=== PATIENT | female | born 1965 | race Caucasian/White ===

== ENCOUNTER 2019-04-10 13:29 | Observation (INO) | payer BC ==
[2019-04-10 14:43] LABS: Absolute Lymphocytes (CBC) 2.1 K/uL (0.7-4.9); Basophils % 0.6 % (0-1.3); Hematocrit 37.8 % (36.0-45.0); Lymphocytes % 46.6 % (15.3-44.8); MPV 9.3 fL (7.6-11.3); RBC Red Blood Cell Count 4.41 M/uL (3.86-4.86)
[2019-04-10] MEDS ORDERED: ASPIRIN 81 MG CHEWABLE TABLET ONE (14:44)
[2019-04-10] MEDS ORDERED: NA CHLORIDE 0.9% 1,000 ML ONE ×2 (14:44→23:56)
[2019-04-10 14:45] LABS: Protime INR 0.95
[2019-04-10] MEDS ORDERED: ENOXAPARIN 60 MG/0.6 ML SQ ONE (14:45)
[2019-04-10] MEDS ORDERED: FAMOTIDINE 20 MG/2 ML VIAL IV ONE (14:45)
[2019-04-10 15:01] LABS: ALT/SGPT 35 U/L (12-78); AST/SGOT 25 U/L (15-37); Alkaline Phosphatase 91 U/L (45-117); BUN Blood Urea Nitrogen 15 mg/dL (7-18); Bicarbonate 28 mmol/L (21-32); Bilirubin Direct < 0.1 mg/dL (0-0.2); Bilirubin Total 0.2 mg/dL (0.2-1.0); Glucose Level 85 mg/dL (74-106); NT PRO-BNP 55 pg/mL (<125); Potassium 4.1 mmol/L (3.5-5.1); Protein, Total 7.6 g/dL (6.4-8.2); Sodium Level 141 mmol/L (136-145); Troponin (Emerg Dept Use Only) < 0.02 ng/mL (0.0-0.045)
--- NOTE | 2019-04-10 16:08 | RAD REPORT ---
EXAM DESCRIPTION: RAD - Chest Single View - 04/10/2019 3:48 pm CLINICAL HISTORY: CHEST PAIN Chest pain. COMPARISON: CHEST SINGLE VIEW dated 10/25/2013 FINDINGS: Portable technique limits examination quality. The lungs are grossly clear. The heart is normal in size. No displaced fractures.A right-sided scolio sis edin is present. IMPRESSION: No acute intrathoracic process suspected.
--- NOTE | 2019-04-10 16:13 | ER ---
Nurse's Notes [facility] Name: Ingrid Butcher Age: 54 yrs Sex: Female : 1965 Arrival Date: 04/10/2019 Time: 13:33 Bed 23 Private MD: Diagnosis: Chest pain, unspecified Presentation: 04/10 13:41 Presenting complaint: Patient states: nauseated, chest pain started 2 hours ago dm5 described as sharp shooting intermittent, denies previous similar pain. 13:41 Method Of Arrival: Ambulatory dm5 13:41 Acuity: CYRUS 2 dm5 Triage Assessment: 19:30 General: Appears in no apparent distress. comfortable, Behavior is calm, cooperative, rr5 appropriate for age. 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 - Social history:: Smoking status: Patient/guardian denies using tobacco. - Family history:: not pertinent. - Ebola Screening: : Patient negative for fever greater than or equal to 101.5 degrees Fahrenheit, and additional compatible Ebola Virus Disease symptoms Patient denies exposure to infectious person Patient denies travel to an Ebola-affected area in the 21 days before illness onset. Screenin:18 Abuse screen: Denies threats or abuse. Denies injuries from another. Nutritional sg screening: No deficits noted. Tuberculosis screening: No symptoms or risk factors identified. Never had TB. Fall Risk None identified. Assessment: 14:18 General: Appears in no apparent distress. well groomed, well developed, well nourished, sg Behavior is calm, cooperative, appropriate for age. Pain: Complains of pain in chest Quality of pain is described as aching. 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 Gait is steady, Speech is normal, Facial symmetry appears normal. Cardiovascular: Heart tones S1 S2 present Capillary refill is brisk in bilateral fingers Patient's skin is warm and dry. Chest pain is described as mild, diffuse, quality is heaviness, indigestion. Respiratory: Airway is patent Respiratory effort is even, unlabored, Respiratory pattern is regular, symmetrical, Breath sounds are clear. GI: Abdomen is round non-distended, Reports normal bowel habits, tolerance of fluids, tolerance of food. : No signs and/or symptoms were reported regarding the genitourinary system. EENT: No signs and/or symptoms were reported regarding the EENT system. Derm: Skin is pink, warm \T\ dry. Musculoskeletal: No signs and/or symptoms reported regarding the musculoskeletal system. 15:20 Reassessment: Patient appears in no apparent distress at this time. Patient and/or sg family updated on plan of care and expected duration. Pain level reassessed. Patient is alert, oriented x 3, equal unlabored respirations, skin warm/dry/pink. 16:20 Reassessment: Patient and/or family updated on plan of care and expected duration. Pain sg level reassessed. Patient is alert, oriented x 3, equal unlabored respirations, skin warm/dry/pink. 17:20 Reassessment: Patient appears in no apparent distress at this time. Patient and/or sg family updated on plan of care and expected duration. Pain level reassessed. Patient is alert, oriented x 3, equal unlabored respirations, skin warm/dry/pink. 18:49 Reassessment: Patient appears in no apparent distress at this time. Patient and/or sg family updated on plan of care and expected duration. Pain level reassessed. Patient is alert, oriented x 3, equal unlabored respirations, skin warm/dry/pink. Patient states symptoms have not improved. 19:30 General: Appears in no apparent distress. 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 19:30 Pain: Denies pain. Complains of pain in chest Pain does not radiate. Pain currently is rr5 7 out of 10 on a pain scale. Quality of pain is described as aching, Pain began gradually, Is intermittent. Pain: Denies pain. Neuro: Level of Consciousness is awake, alert, obeys commands, Oriented to person, place, time, situation. Cardiovascular: Reports episode of chest pain Capillary refill < 3 seconds Patient's skin is warm and dry. Respiratory: Airway is patent Respiratory effort is even, unlabored, Respiratory pattern is regular, symmetrical. GI: Abdomen is round non-distended. : No signs and/or symptoms were reported regarding the genitourinary system. EENT: No signs and/or symptoms were reported regarding the EENT system. Derm: Skin is intact, Skin is pink, warm \T\ dry. Musculoskeletal: No signs and/or symptoms reported regarding the musculoskeletal system. 20:30 Reassessment: Patient appears in no apparent distress at this time. Patient and/or rr5 family updated on plan of care and expected duration. Pain level reassessed. Patient is alert, oriented x 3, equal unlabored respirations, skin warm/dry/pink. for admission awaiting for room assignment. Reassessment: Patient appears in no apparent distress at this time. 20:59 Reassessment: Patient appears in no apparent distress at this time. complaints of chest rr5 pain 7/10. medication given see [facility]. 22:00 Reassessment: Patient appears in no apparent distress at this time. Patient is alert, rr5 oriented x 3, equal unlabored respirations, skin warm/dry/pink. Patient states feeling better. Patient states symptoms have improved. Vital Signs: 13:43 BP 136 / 83; Pulse 64; Resp 18; Temp 97.5(TE); Pulse Ox 98% on R/A; Weight 51.26 kg; dm5 Height 5 ft. (152.40 cm); Pain 7/10; 18:53 BP 124 / 78; Pulse 62; Resp 16; Temp 98.6(O); Pulse Ox 100% ; lt1 19:32 BP 127 / 80; Pulse 64; Resp 17; Temp 97.5; Pulse Ox 99% on R/A; rr5 20:00 BP 121 / 75; Pulse 75; Resp 17; Pulse Ox 98% ; rr5 21:00 BP 123 / 79; Pulse 74; Resp 19; Temp 98; Pulse Ox 98% ; Pain 7/10; rr5 22:00 BP 115 / 65; Pulse 62; Resp 17; Pulse Ox 98% ; rr5 13:43 Body Mass Index 22.07 (51.26 kg, 152.40 cm) dm5 ED Course: 13:33 Patient arrived in ED. as 13:42 Triage completed. dm5 13:43 Arm band placed on right wrist. dm5 13:51 John Puri MD is Attending Physician. sarah 13:56 EKG done, by compressor service technician. reviewed by John Puri MD. 3 14:18 Dev Ibanez, RN is Primary Nurse. sg 14:18 Initial lab(s) drawn, by ms, sent to lab. Inserted saline lock: 20 gauge in right sg antecubital area, using aseptic technique. Blood collected. 15:14 Urine Dipstick--Ancillary (enter results) Sent. lt1 16:08 Sarath Jean Baptiste MD is Hospitalizing Provider. sarah 16:16 XRAY Chest (1 view) In Process Unspecified. EDMS 19:30 Patient has correct armband on for positive identification. Placed in gown. Bed in low rr5 position. Call light in reach. Side rails up X2. playground monitor on. Pulse ox on. NIBP on. 19:32 Miguelito Coronel, RN is Primary Nurse. rr5 21:28 No provider procedures requiring assistance completed. Patient admitted, IV remains in rr5 place. intact, No redness/swelling at site. Patient maintains SpO2 saturation greater than 95% on room air. 04/11 07:01 Primary Nurse role handed off by Miguelito Coronel, GRACE bp 07:01 Duncan Guo, GRACE is Primary Nurse. bp 07:35 Head of bed lowered. bd Administered Medications: 04/10 15:21 Drug: Pepcid 20 mg Route: IVP; Site: right antecubital; sg 15:22 Drug: NS 0.9% 1000 ml Route: IV; Rate: 125 ml/hr; Site: right antecubital; sg 15:22 Drug: Aspirin Chewable Tablet 324 mg Route: PO; sg 17:00 Drug: Lovenox 1 mg/kg Route: Sub-Q; Site: right lower abdomen; sg 19:07 Drug: morphine 2 mg Route: IVP; Site: right antecubital; sg 20:07 Follow up: Response: No adverse reaction; RASS: Alert and Calm (0) rr5 19:08 Drug: Zofran 4 mg Route: IVP; Site: right antecubital; sg 20:10 Follow up: Response: No adverse reaction rr5 Outcome: 16:09 Decision to Hospitalize by Provider. sarah 21:28 Admitted to ER Hold. Please see [facility] for further documentation. rr5 21:28 Condition: stable 21:28 Instructed on the need for admit. 04/11 09:39 Patient left the ED. iw Signatures: Dispatcher [employer] Kelsie Ramos Deana, RN RN dm5 Dev Ibanez, RN John Lynch MD MD cha Martinez, Amelia as Williams, Irene, RN RN iw Peltier, Brian, RN RN bp Montes, Shakira 3 Miguelito Coronel RN RN rr5 Azeb Caldera 1
--- NOTE | 2019-04-10 16:13 | EDPHYS ---
Physician Documentation [facility] Name: Ingrid Butcher Age: 54 yrs Sex: Female : 1965 Arrival Date: 04/10/2019 Time: 13:33 Bed 23 Private MD: ED Physician John Puri HPI: 04/10 14:38 This 54 yrs old Female presents to ER via Ambulatory with complaints of Chest sarah Pain. 14:38 The patient or guardian reports chest pain that is located primarily in the substernal sarah area. Onset: just prior to arrival, 3 hour(s) ago. The pain radiates to. Associated signs and symptoms: The patient has no apparent associated signs or symptoms. The chest pain is described as aching. Modifying factors: The symptoms are alleviated by nothing. the symptoms are aggravated by nothing. Severity of pain: At its worst the pain was mild moderate in the emergency department the pain is unchanged. 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 - Social history:: Smoking status: Patient/guardian denies using tobacco. - Family history:: not pertinent. - Ebola Screening: : Patient negative for fever greater than or equal to 101.5 degrees Fahrenheit, and additional compatible Ebola Virus Disease symptoms Patient denies exposure to infectious person Patient denies travel to an Ebola-affected area in the 21 days before illness onset. ROS: 14:38 Constitutional: Negative for fever, chills, and weight loss, Eyes: Negative for injury, sarah pain, redness, and discharge, ENT: Negative for injury, pain, and discharge, Neck: Negative for injury, pain, and swelling, Respiratory: Negative for shortness of breath, cough, wheezing, and pleuritic chest pain, Abdomen/GI: Negative for abdominal pain, nausea, vomiting, diarrhea, and constipation, Back: Negative for injury and pain, : Negative for injury, bleeding, discharge, and swelling, MS/Extremity: Negative for injury and deformity, Skin: Negative for injury, rash, and discoloration, Neuro: Negative for headache, weakness, numbness, tingling, and seizure, Psych: Negative for depression, anxiety, suicide ideation, homicidal ideation, and hallucinations, Allergy/Immunology: Negative for hives, rash, and allergies, Endocrine: Negative for neck swelling, polydipsia, polyuria, polyphagia, and marked weight changes, Hematologic/Lymphatic: Negative for swollen nodes, abnormal bleeding, and unusual bruising. 14:38 Cardiovascular: Positive for chest pain. Exam: 14:38 Constitutional: This is a well developed, well nourished patient who is awake, alert, sarah and in no acute distress. Head/Face: Normocephalic, atraumatic. Eyes: Pupils equal round and reactive to light, extra-ocular motions intact. Lids and lashes normal. Conjunctiva and sclera are non-icteric and not injected. Cornea within normal limits. Periorbital areas with no swelling, redness, or edema. ENT: Nares patent. No nasal discharge, no septal abnormalities noted. Tympanic membranes are normal and external auditory canals are clear. Oropharynx with no redness, swelling, or masses, exudates, or evidence of obstruction, uvula midline. Mucous membranes moist. Neck: Trachea midline, no thyromegaly or masses palpated, and no cervical lymphadenopathy. Supple, full range of motion without nuchal rigidity, or vertebral point tenderness. No Meningismus. Chest/axilla: Normal chest wall appearance and motion. Nontender with no deformity. No lesions are appreciated. Cardiovascular: Regular rate and rhythm with a normal S1 and S2. No gallops, murmurs, or rubs. Normal PMI, no JVD. No pulse deficits. Respiratory: Lungs have equal breath sounds bilaterally, clear to auscultation and percussion. No rales, rhonchi or wheezes noted. No increased work of breathing, no retractions or nasal flaring. Abdomen/GI: Soft, non-tender, with normal bowel sounds. No distension or tympany. No guarding or rebound. No evidence of tenderness throughout. Back: No spinal tenderness. No costovertebral tenderness. Full range of motion. Female : Normal external genitalia. Skin: Warm, dry with normal turgor. Normal color with no rashes, no lesions, and no evidence of cellulitis. MS/ Extremity: Pulses equal, no cyanosis. Neurovascular intact. Full, normal range of motion. Neuro: Awake and alert, GCS 15, oriented to person, place, time, and situation. Cranial nerves II-XII grossly intact. Motor strength 5/5 in all extremities. Sensory grossly intact. Cerebellar exam normal. Normal gait. Psych: Awake, alert, with orientation to person, place and time. Behavior, mood, and affect are within normal limits. Vital Signs: 13:43 BP 136 / 83; Pulse 64; Resp 18; Temp 97.5(TE); Pulse Ox 98% on R/A; Weight 51.26 kg; dm5 Height 5 ft. (152.40 cm); Pain 7/10; 18:53 BP 124 / 78; Pulse 62; Resp 16; Temp 98.6(O); Pulse Ox 100% ; lt1 19:32 BP 127 / 80; Pulse 64; Resp 17; Temp 97.5; Pulse Ox 99% on R/A; rr5 20:00 BP 121 / 75; Pulse 75; Resp 17; Pulse Ox 98% ; rr5 21:00 BP 123 / 79; Pulse 74; Resp 19; Temp 98; Pulse Ox 98% ; Pain 7/10; rr5 22:00 BP 115 / 65; Pulse 62; Resp 17; Pulse Ox 98% ; rr5 13:43 Body Mass Index 22.07 (51.26 kg, 152.40 cm) dm5 MDM: 13:51 Patient medically screened. [facility] 14:38 Data reviewed: vital signs, nurses notes, lab test result(s), EKG, radiologic studies, sarah plain films. 04/10 14:23 Order name: Basic Metabolic Panel 04/10 14:23 Order name: CBC with Diff sg 04/10 14:23 Order name: LFT's sg 04/10 14:23 Order name: Magnesium sg 04/10 14:23 Order name: NT PRO-BNP sg 04/10 14:23 Order name: PT-INR; Complete Time: 16:06 04/10 14:23 Order name: Troponin (emerg Dept Use Only) 04/10 14:37 Order name: Lipase; Complete Time: 16:06 [facility] 04/10 14:50 Order name: Urine Dipstick--Ancillary (enter results) ga 04/10 14:50 Order name: CBC with Automated Diff EDMS 04/10 15:02 Order name: Basic Metabolic Panel EDMS 04/10 15:02 Order name: Liver (Hepatic) Function EDAR 04/10 15:02 Order name: Troponin (Emerg Dept Use Only) EDMS 04/10 15:02 Order name: NT PRO-BNP EDMS 04/10 15:02 Order name: Magnesium EDMS 04/10 15:28 Order name: Manual Differential EDMS 04/10 22:06 Order name: Creatine Phosphokinase EDAR 04/10 22:06 Order name: CKMB Creatine Kinase MB EDMS 04/10 22:06 Order name: Troponin I EDMS 04/10 22:59 Order name: Urine Drug Screen EDMS 04/10 23:26 Order name: Urine Microscopic Only EDMS 04/11 06:22 Order name: CBC with Automated Diff EDMS 04/11 06:30 Order name: Creatine Phosphokinase EDAR 04/11 06:30 Order name: CKMB Creatine Kinase MB EDAR 04/11 06:30 Order name: Troponin I EDAR 04/11 06:35 Order name: Basic Metabolic Panel EDAR 04/11 06:35 Order name: Lipid Profile EDAR 04/11 06:35 Order name: T4 Free EDAR 04/11 06:35 Order name: Magnesium EDAR 04/11 06:35 Order name: Thyroid Stimulating Hormone [facility] 04/10 14:23 Order name: XRAY Chest (1 view) 04/10 14:23 Order name: Cardiac monitoring; Complete Time: 14:24 04/10 14:23 Order name: IV Saline Lock; Complete Time: 14:24 04/10 14:23 Order name: Labs collected and sent; Complete Time: 14:24 04/10 14:23 Order name: O2 Per Protocol; Complete Time: 14:24 04/10 14:23 Order name: O2 Sat Monitoring; Complete Time: 14:24 04/10 14:25 Order name: Urine Dipstick-Ancillary (obtain specimen); Complete Time: 15:42 04/10 14:37 Order name: Echo w/ Doppler [facility] 04/10 18:23 Order name: EKG Electrocardiogram EDMS Administered Medications: 15:21 Drug: Pepcid 20 mg Route: IVP; Site: right antecubital; sg 15:22 Drug: NS 0.9% 1000 ml Route: IV; Rate: 125 ml/hr; Site: right antecubital; sg 15:22 Drug: Aspirin Chewable Tablet 324 mg Route: PO; sg 17:00 Drug: Lovenox 1 mg/kg Route: Sub-Q; Site: right lower abdomen; sg 19:07 Drug: morphine 2 mg Route: IVP; Site: right antecubital; sg 20:07 Follow up: Response: No adverse reaction; RASS: Alert and Calm (0) rr5 19:08 Drug: Zofran 4 mg Route: IVP; Site: right antecubital; sg 20:10 Follow up: Response: No adverse reaction rr5 Disposition: 04/10/19 16:09 Hospitalization ordered by Sarath Jean Baptiste for Observation. Preliminary diagnosis is Chest pain, unspecified. - Bed requested for Telemetry/MedSurg (observation). - Status is Observation. iw - Condition is Stable. - Problem is new. - Symptoms have improved. UTI on Admission? No Signatures: Dispatcher [employer] EDJacklyn Fuentes RN RN dm5 Carol Luu RN RN mw Gay, Steven, RN RN sg Anderson, Corey, MD MD cha Williams, Irene, RN RN Miguelito Coronel, RN RN rr5 Corrections: (The following items were deleted from the chart) 19:40 16:09 Hospitalization Ordered by Sarath Jean Baptiste MD for Observation. Preliminary diagnosis mw is Chest pain, unspecified. Bed requested for Telemetry/MedSurg (observation). Status is Observation. Condition is Stable. Problem is new. Symptoms have improved. UTI on Admission? No. sarah 04/11 05:33 04/10 19:40 04/10/2019 16:09 Hospitalization Ordered by Sarath Jean Baptiste MD for mw Observation. Preliminary diagnosis is Chest pain, unspecified. Bed requested for [facility] ER HOLD. Status is Observation. Condition is Stable. Problem is new. Symptoms have improved. UTI on Admission? No. zachary 04/11 09:39 05:33 04/10/2019 16:09 Hospitalization Ordered by Sarath Jean Baptiste MD for Observation. iw Preliminary diagnosis is Chest pain, unspecified. Bed requested for Telemetry/MedSurg (observation). Status is Observation. Condition is Stable. Problem is new. Symptoms have improved. UTI on Admission? No. zachary
[2019-04-10 16:21] LABS: Urine Blood TRACE (NEG); Urine Glucose NEGATIVE (NEG); Urine Protein NEGATIVE (NEG); Urine pH 5.5 (5.0-7.0)
[2019-04-10 16:25] LABS: Blood Morphology Comment NOT SEEN (NOT SEEN); Platelet Estimate ADEQ
[2019-04-10] MEDS ORDERED: ONDANSETRON 4 MG/2 ML VIAL ONE (18:55)
[2019-04-10] MEDS ORDERED: MORPHINE 2 MG/ML SYR ONE (18:55)
--- NOTE | 2019-04-10 19:39 | P.HP ---
Certification for Inpatient Patient admitted to: Observation With expected LOS: <2 Midnights Patient will require the following post-hospital care: None Practitioner: I am a practitioner with admitting privileges, knowledge of patient current condition, hospital course, and medical plan of care. Services: Services provided to patient in accordance with Admission requirements found in Title 42 Section 412.3 of the Code of Federal Regulations Patient History Date of Service: 04/10/19 Primary Care Provider: Dr. Ruiz([place]); Neurology-Dr. Potts Reason for admission: Chest pain History of Present Illness: 54-year-old female presented to the emergency room with chest pain. Patient reports chest pain that started around 11:00 a.m. this morning. She has not had chest pain before. The pain was to the center of the chest. It got worse over time. She described the pain as a cramping like sensation. It radiated to the neck region with muscle tightness. It was associated with some shortness of breath and nausea but no vomiting. There is a family history of heart disease. Reports history of migraines. Patient came to the ER for further evaluation. In the ER patient evaluated. Troponin unremarkable. Blood pressure stable in the emergency room. On lab white count 4.4, hemoglobin 12.7. Sodium 141, potassium 4.1, BUN of 15, creatinine 0.9 with a GFR 65. Glucose 85. Urinalysis negative. Chest x-ray unremarkable. EKG showed no significant EKG changes. Patient was admitted for further evaluation. When I saw the patient the ER, chest pain had resolved. Family at bedside. She does drink some alcohol. No tobacco history. No prior heart disease. Allergies No Known Drug Allergies Allergy (Unverified 08/14/14 04:42) Unknown Home medications list reviewed: Yes - Past Medical/Surgical History Diabetic: No -: Migraine headaches -: Scoliosis -: Mccabe edin Psychosocial/ Personal History: Patient lives at home. - Family History Father -: Heart disease - Social History Smoking Status: Never smoker Alcohol use: Yes CD- Drugs: No Caffeine use: Yes Place of Residence: Home Review of Systems General: As per HPI Eyes: Unremarkable ENT: Unremarkable Respiratory: Shortness of Breath, As per HPI Cardiovascular: Chest Pain, As per HPI Gastrointestinal: Nausea, As per HPI Genitourinary: Unremarkable Musculoskeletal: Unremarkable Integumentary: Unremarkable Neurological: Unremarkable Lymphatics: Unremarkable Physical Examination - Physical Exam General: Alert, In no apparent distress, Oriented x3, Cooperative HEENT: Atraumatic, Normocephalic, PERRLA, Mucous membr. moist/pink Neck: Supple, No Thyromegaly Respiratory: Clear to auscultation bilaterally, Normal air movement Cardiovascular: Normal pulses, Regular rate/rhythm Gastrointestinal: Normal bowel sounds, Soft and benign, Non-distended, No tenderness, No masses, No rebound, No guarding Musculoskeletal: No contractures, No erythema, No tenderness, No warmth Integumentary: No tenderness/swelling, No erythema, No warmth, No cyanosis Neurological: Normal speech, Normal strength at 5/5 x4 extr, Normal tone, Normal affect - Studies Laboratory Data (last 24 hrs) 04/10/19 14:10: Lipase 163 04/10/19 14:10: PT 11.2, INR 0.95 04/10/19 14:10: WBC 4.4, Hgb 12.7, Hct 37.8, Plt Count 249 04/10/19 14:10: Sodium 141, Potassium 4.1, BUN 15, Creatinine 0.90, Glucose 85, Magnesium 2.0, Total Bilirubin 0.2, AST 25, ALT 35, Alkaline Phosphatase 91 Assessment and Plan - Plan Impression: Chest pain likely noncardiac Migraine headaches Plan: Chest pain likely noncardiac: Patient will be admitted for further evaluation and treatment. Will monitor cardiac enzymes and telemetry. Will provide aspirin. Will provide DVT prophylaxis-Lovenox. Will check urine drug screen. Echocardiogram to be obtained to further evaluate. Will consult cardiology to further assess. Will keep the patient NPO as the patient may require cardiac evaluation. Will need to consider outpatient workup if lab unremarkable. Await recommendations from cardiology. I will turn the service over to the hospitalist team tomorrow. They will continue her care. Anticipate discharge likely tomorrow if cleared by cardiology and with negative workup. Migraine headaches: Overall stable. Will continue with her medication of propanolol. Will provide Imitrex as needed. Will provide medication for pain. Discharge Plan: Home Plan to discharge in: 24 Hours - Advance Directives Does patient have a Living Will: No Does patient have a Durable POA for Healthcare: No - Code Status/Comfort Care Code Status Assessed: Yes (Patient is full code) Time Spent Managing Pts Care (In Minutes): 55
[2019-04-10] MEDS: NA CHLORIDE 0.9% 1,000 ML IV SCH (20:50)
[2019-04-10] MEDS ORDERED: HYDROCODONE/APAP 7.5/325 MG TAB PO PRN (20:50)
[2019-04-10] MEDS ORDERED: TRAMADOL HCL 50 MG TAB PO PRN (20:50)
[2019-04-10] MEDS ORDERED: SUMATRIPTAN SUCCI 50 MG TAB PO PRN (20:50)
[2019-04-10] MEDS ORDERED: ACETAMINOPHEN 500 MG TAB PO PRN (20:50)
[2019-04-10] MEDS ORDERED: ONDANSETRON 4 MG/2 ML VIAL IV PRN (20:50)
[2019-04-10] MEDS: PROPRANOLOL HCL 10 MG TAB PO SCH (21:00)
[2019-04-10 22:05] LABS: CKMB Creatine Kinase MB 1.2 ng/mL (0.3-3.6); Creatine Phosphokinase 115 U/L (26-192); Troponin I < 0.02 ng/mL (0.0-0.045)
[2019-04-10 22:58] LABS: Barbiturates NEGATIVE (NEGATIVE); Benzodiazepines NEGATIVE (NEGATIVE); Cocaine NEGATIVE (NEGATIVE); METHAMPHETAM NEGATIVE (NEGATIVE); Methadone NEGATIVE (NEGATIVE); Opiates POSITIVE (NEGATIVE); Phencyclidine NEGATIVE (NEGATIVE); THC Cannibis NEGATIVE (NEGATIVE)
[2019-04-10 23:24] LABS: Urine Bacteria <20 /HPF (<20); Urine Culture Reflex Order NOT NEEDED; Urine RBC NONE SEEN /HPF (NONE SEEN)
--- NOTE | 2019-04-11 00:23 | P.PN ---
Subjective Date of Service: 04/11/19 Primary Care Provider: Dr. Ruiz([place]); Neurology-Dr. Potts Chief Complaint: Chest pain Subjective: Doing well Physical Examination - Vital Signs Blood Pressure: 131/75 Pulse: 75 - Physical Exam General: Alert, In no apparent distress, Oriented x3, Cooperative HEENT: Atraumatic Neck: Supple Respiratory: Clear to auscultation bilaterally, Normal air movement Cardiovascular: Normal pulses, Regular rate/rhythm Gastrointestinal: Normal bowel sounds, Soft and benign, Non-distended, No tenderness, No masses, No rebound Neurological: Normal speech, Normal strength at 5/5 x4 extr, Normal tone, Normal affect - Studies Laboratory Data (last 24 hrs) 04/10/19 14:10: Lipase 163 04/10/19 14:10: PT 11.2, INR 0.95 04/10/19 14:10: WBC 4.4, Hgb 12.7, Hct 37.8, Plt Count 249 04/10/19 14:10: Sodium 141, Potassium 4.1, BUN 15, Creatinine 0.90, Glucose 85, Magnesium 2.0, Total Bilirubin 0.2, AST 25, ALT 35, Alkaline Phosphatase 91 Medications List Reviewed: Yes Assessment & Plan Discharge Plan: Home Plan to discharge in: 24 Hours Physician Review Additional Text: Impression: Chest pain likely noncardiac Migraine headaches Plan: Chest pain likely noncardiac: So far cardiac enzymes x2 negative. Urine drug screen unremarkable.. Continue DVT prophylaxis-Lovenox. Echocardiogram ordered to further evaluate. Await recommendation from cardiology. Will keep the patient NPO as the patient may require cardiac evaluation. Will need to consider outpatient workup if lab unremarkable. Await recommendations from cardiology. Daytime hospitalist team will continue her care. Anticipate discharge later today if workup unremarkable. Migraine headaches: Overall stable. Will continue with her medication of propanolol. Will provide Imitrex as needed. Will provide medication for pain. Time Spent Managing Pts Care (In Minutes): 55
[2019-04-11 00:25] VITALS: BMI 22.0
[2019-04-11 06:10] LABS: Absolute Lymphocytes (CBC) 2.4 K/uL (0.7-4.9); Basophils % 0.5 % (0-1.3); Hematocrit 34.1 % (36.0-45.0); Lymphocytes % 48.3 % (15.3-44.8); MPV 9.1 fL (7.6-11.3); RBC Red Blood Cell Count 3.97 M/uL (3.86-4.86)
[2019-04-11 06:29] LABS: CKMB Creatine Kinase MB < 1.0 ng/mL (0.3-3.6); Creatine Phosphokinase 90 U/L (26-192); Troponin I < 0.02 ng/mL (0.0-0.045)
[2019-04-11] MEDS ORDERED: PANTOPRAZOLE 40MG TABLET PO SCH (06:30)
[2019-04-11 06:34] LABS: Magnesium 1.8 mg/dL (1.8-2.4); Potassium 4.2 mmol/L (3.5-5.1); Thyroid Stimulating Hormone 1.16 uIU/mL (0.360-3.740)
--- NOTE | 2019-04-11 08:28 | ECHO ---
HEIGHT: 5 ft 0 in WEIGHT: 113 lb 0 oz DATE OF STUDY: 04/10/[address]: John Puri MD 2-DIMENSIONAL: YES M.MODE: YES DOPPLER: YES COLOR FLOW: YES TDS: NO PORTABLE: NO DEFINITY: NO BUBBLE STUDY: NO DIAGNOSIS: CHEST PAIN CARDIAC HISTORY: CATHERIZATION: NO SURGERY: NO PROSTHETIC VALVE: NO PACEMAKER: NO MEASUREMENTS (cm) DIASTOLIC (NORMALS) SYSTOLIC (NORMALS) IVSd 0.8 (0.6-1.2) LA Diam 2.7 (1.9-4.0) LVEF 79% LVIDd 3.8 (3.5-5.7) LVIDs 2.0 (2.0-3.5) %FS 47% LVPWd 0.6 (0.6-1.2) Ao Diam 2.3 (2.0-3.7) 2 DIMENSIONAL ASSESSMENT: RIGHT ATRIUM: NORMAL LEFT ATRIUM: NORMAL RIGHT VENTRICLE: NORMAL LEFT VENTRICLE: NORMAL TRICUSPID VALVE: NORMAL MITRAL VALVE: NORMAL PULMONIC VALVE: NORMAL AORTIC VALVE: NORMAL PERICARDIAL EFFUSION: NONE AORTIC ROOT: NORMAL LEFT VENTRICULAR WALL MOTION: NORMAL. DOPPLER/COLOR FLOW: MILD TRICUSPID REGURGITATION. COMMENTS: NORMAL LEFT VENTRICULAR SIZE AND FUNCTION. MILD TRICUSPID REGURGITATION- NORMAL RIGHT VENTRICULAR SYSTOLIC PRESSURE. NO EFFUSION. NO WALL MOTION ABNORMALITY. TECHNOLOGIST: DEVAN REYES
[2019-04-11] MEDS ORDERED: THIAMINE HCL 100 MG TABLET PO SCH (09:00)
[2019-04-11] MEDS ORDERED: ASPIRIN 81 MG CHEWABLE TABLET PO SCH (09:00)
[2019-04-11] MEDS ORDERED: FOLIC ACID 1 MG TABLET PO SCH (09:00)
[2019-04-11] MEDS ORDERED: ENOXAPARIN 40 MG/0.4 ML SQ SCH (09:00)
[2019-04-11] MEDS: PROPRANOLOL HCL 10 MG TAB PO SCH (09:58)
[2019-04-11] MEDS: NA CHLORIDE 0.9% 1,000 ML IV SCH (09:59)
--- NOTE | 2019-04-11 11:36 | EKG ---
Test Date: 2019-04-10 Test Time: 13:50:52 Puff Ironer: ARACELIS MEASUREMENT RESULTS: Intervals: Rate: 66 ID: [id number] QRSD: 80 QT: 382 QTc: 400 Ona: P: 49 ID: [id number] QRS: 81 T: 46 INTERPRETIVE STATEMENTS: Normal sinus rhythm Normal ECG Compared to ECG 10/25/2013 14:56:19 No significant changes Electronically Signed On 04-11-19 11:33:47 CDT by Roberth Silva
[2019-04-11] MEDS ORDERED: TRAZODONE 50 MG TABLET PO PRN (15:12)
[2019-04-11 16:37] VITALS: BP 108/59; TEMP 97.6
[2019-04-11 17:21] VITALS: O2SAT 97
--- NOTE | 2019-04-12 02:03 | CON ---
Date of Consultation: 04/11/[address] Breaux on 04/10/2019, for chest pain, I saw the patient on 04/11/2019. History Of Present Illness: Ms. Butcher is a 54-year-old woman, has no significant past medical hi story. She takes propranolol for hypertension. She came in with sharp stabbing chest pain mid-epiga stric radiating to the back. She has had esophageal stricture dilatation in the past by Dr. Shaw. Her symptoms are not related to exertion. She does not have any diaphoresis or shortness of breath, but does get some nauseas with it. She denied any palpitation or syncope. By the time I saw her, s he has already had a normal EKG, normal chest x-ray, normal troponin, normal BNP, normal CPK, normal MB, and normal echocardiogram. She was still having her pain intermittently. Past Medical History: Negative. Allergies: NEGATIVE. Review of Systems: Negative. Social History: Unremarkable. Family History: Unremarkable. Medications: At home include propranolol. Physical Examination: Vital Signs: Stable. She was afebrile. HEENT: Negative. Neck: Supple with no bruit. Chest: Clear to auscultation and percussion. Cardiac: Revealed a regular rhythm and rate. No murmurs, gallops, or rubs. Abdomen: Benign. Extremities: Revealed no clubbing, cyanosis, or edema. Diagnostic Data: All normal. Impression And Plan: Atypical chest pain, most likely gastrointestinal in nature. She has had esoph ageal stricture dilatation in the past. Her symptoms are nonexertional. Echocardiogram, CPKs, MBs, and troponin are negative. I am comfortable with her going home on proton pump inhibitor, maybe doub le the dose temporarily, have her see Dr. Shaw and I would like her to have an outpatient stress te st done anyway. NB/MODL Voice ID: [id number] Report ID: [id number]
--- NOTE | 2019-04-13 06:58 | DS ---
Date of Discharge: 04/11/2019 Consultants: 1.Dr. Silva with Cardiology. 2.Dr. Shaw with GI. Procedures: None. Discharge Diagnoses: 1.Atypical chest pain. 2.Migraine headaches. 3.History of esophageal stricture, status post dilatation in the past. 4.Hypertriglyceridemia. 5.History of scoliosis. Hospital Course: Patient is a 54-year-old female with past medical history of restless legs syndrome , migraines, comes in with chest pain. Patient also has history of esophageal stricture with previou s dilatation by Dr. Shaw over a year ago. Patient does report difficulty swallowing, needs to have sips of water with anything that she swallows. Patient was admitted to rule out ACS. Cardiac enzym es were negative. Echocardiogram was done, which did not show any wall motion abnormalities. Lipid panel showed mildly elevated triglycerides. HDL was low. She was seen by Cardiology, Dr. Silva w renae recommended outpatient stress test. Patient was started on PPI due to her history of esophageal s tricture. She is supposed to be on PPI at home. Dr. Shaw was consulted. However, patient did not wish to stay in the hospital, wanted to follow up as an outpatient. As her symptoms had dissipated, she did not have any further chest pain and she was tolerating her diet well without any choking epi sodes. She was discharged to follow up with GI as an outpatient. Her chest pain is likely atypical, likely related to her esophageal stricture with possible spasms. She will need EGD with repeat dila tation and to continue on PPI faithfully. Patient was then discharged home in stable condition. Activity: As tolerated. Medications: As per medication reconciliation list. Followup: Follow up with primary care physician in 2 to 3 days. Follow up with GI, Dr. Shaw in 1 week. Follow up with boiling house hand, Dr. Silva in 1 week for outpatient stress test. Return to ER f or worsening condition. Diet: Heart healthy. Physical Examination: General: Awake, alert, oriented x3. No acute distress. CV: S1, S2. No murmurs. Respiratory: Moving air well bilaterally. Abdomen: Soft, nontender, nondistended. Positive bowel sounds. Extremities: No clubbing, cyanosis, edema. Neurologic: Nonfocal. SA/MODL Voice ID: [id number] Report ID: [id number]
== END 2019-04-11 18:21 | disposition home or self-care (01) ==
LOC: ER 13:29 → ERHOLD 19:34 → 4TH 04-11 08:47
PROVIDERS: ADMIT Family Medicine; ATTEND Family Medicine
DX: R07.89 Other chest pain (principal); G43.909 Migraine, unspecified, not intractable, without status migrainosus; E78.1 Pure hyperglyceridemia; M41.9 Scoliosis, unspecified; G25.81 Restless legs syndrome
CPT/HCPCS: 93005; 93306; 85025 ×2; 80048 ×2; 36415; 83735 ×2; 82550 ×2; 85610; 80061; 80076; 80307 ×8; 84443; 84484 ×3; 82553 ×2; 84439; 83690; 83880; 71045; 96375; 96372; 96374; 99285; J1650 ×2; J2270; J7030 ×4; J2405; G0378 ×3; 81003; 81015

== ENCOUNTER 2019-05-02 17:54 | Emergency (ER) | payer BC ==
[2019-05-02] MEDS ORDERED: HYDROCODONE/APAP 7.5/325 MG TAB ONE (18:17)
--- NOTE | 2019-05-02 18:41 | RAD REPORT ---
EXAM DESCRIPTION: RAD - Wrist Right 3 View - 05/02/2019 6:28 pm CLINICAL HISTORY: Fall, wrist pain COMPARISON: None. FINDINGS: Transverse fracture of the distal radius is present approximately 1 centimeter from the ar ticular surface. No distraction or angulation deformity. Ulna is intact. No carpal bone fracture or d isplacement. There is no dislocation or periosteal reaction noted. No foreign body or other soft tiss ue abnormality. IMPRESSION: Distal right radius fracture with no distraction or angulation deformity.
--- NOTE | 2019-05-02 18:55 | EDPHYS ---
Physician Documentation [facility] Name: Ingrid Butcher Age: 54 yrs Sex: Female : 1965 Arrival Date: 05/02/2019 Time: 18:04 Bed 28 Private MD: ED Physician John Puri HPI: 05/02 18:52 This 54 yrs old Female presents to ER via Ambulatory with complaints of Wrist kb Injury. 18:52 The patient or guardian reports injury, pain, swelling, tenderness. The complaints kb affect the right wrist diffusely. Context: The problem was sustained at home, resulted from a fall, from hoverboard, on an outstretched hand. Onset: The symptoms/episode began/occurred just prior to arrival. Modifying factors: The symptoms are alleviated by nothing, the symptoms are aggravated by nothing. Associated signs and symptoms: The patient has no apparent associated signs or symptoms. The patient has not experienced similar symptoms in the past. The patient has not recently seen a physician. 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 - Social history:: Smoking status: Patient/guardian denies using tobacco. - Ebola Screening: : No symptoms or risks identified at this time. ROS: 18:51 Constitutional: Negative for fever, chills, and weight loss, Cardiovascular: Negative kb for chest pain, palpitations, and edema, Respiratory: Negative for shortness of breath, cough, wheezing, and pleuritic chest pain, Abdomen/GI: Negative for abdominal pain, nausea, vomiting, diarrhea, and constipation, Skin: Negative for injury, rash, and discoloration, Neuro: Negative for headache, weakness, numbness, tingling, and seizure. 18:51 MS/extremity: Positive for injury or acute deformity, pain, tenderness. Exam: 18:51 Constitutional: This is a well developed, well nourished patient who is awake, alert, kb and in no acute distress. Head/Face: Normocephalic, atraumatic. Chest/axilla: Normal chest wall appearance and motion. Nontender with no deformity. No lesions are appreciated. Cardiovascular: Regular rate and rhythm with a normal S1 and S2. No gallops, murmurs, or rubs. Normal PMI, no JVD. No pulse deficits. Respiratory: Lungs have equal breath sounds bilaterally, clear to auscultation and percussion. No rales, rhonchi or wheezes noted. No increased work of breathing, no retractions or nasal flaring. Abdomen/GI: Soft, non-tender, with normal bowel sounds. No distension or tympany. No guarding or rebound. No evidence of tenderness throughout. Skin: Warm, dry with normal turgor. Normal color with no rashes, no lesions, and no evidence of cellulitis. Neuro: Awake and alert, GCS 15, oriented to person, place, time, and situation. Cranial nerves II-XII grossly intact. Motor strength 5/5 in all extremities. Sensory grossly intact. Cerebellar exam normal. Normal gait. 18:51 Musculoskeletal/extremity: Extremities: grossly normal except: noted in the right wrist: pain, swelling, tenderness, ROM: limited active range of motion due to pain, Circulation is intact in all extremities. Sensation intact. Vital Signs: 18:05 BP 128 / 86; Pulse 89; Resp 16; Temp 98.6; Pulse Ox 100% on R/A; Weight 51.26 kg; la1 Height 5 ft. 0 in. (152.40 cm); 19:27 BP 131 / 85; Pulse 91; Resp 18; Pulse Ox 100% on R/A; ca1 18:05 Body Mass Index 22.07 (51.26 kg, 152.40 cm) la1 MDM: 18:09 Patient medically screened. kb 18:51 Data reviewed: vital signs, nurses notes. Data interpreted: Pulse oximetry: on room air kb is 100 %. Interpretation: normal. Counseling: I had a detailed discussion with the patient and/or guardian regarding: the historical points, exam findings, and any diagnostic results supporting the discharge/admit diagnosis, radiology results, the need for outpatient follow up, a orthopedic surgeon, to return to the emergency department if symptoms worsen or persist or if there are any questions or concerns that arise at home. 05/02 18:06 Order name: Wrist Right 3 View XRAY; Complete Time: 18:47 la1 05/02 18:50 Order name: Sugar Tong Forearm Splint; Complete Time: 19:25 kb 05/02 18:50 Order name: Sling; Complete Time: 19:25 kb Administered Medications: 18:18 Drug: [place] (7.5 mg-325 mg) 1 tabs Route: PO; ca1 18:55 Follow up: Response: No adverse reaction; Pain is decreased ca1 Disposition: 05/03 05:47 Co-signature as Attending Physician, John Puri MD I agree with the assessment and sarah plan of care. Disposition: 05/02/19 18:54 Discharged to Home. Impression: Unspecified fracture of right forearm - radius. - Condition is Stable. - Discharge Instructions: Forearm Fracture, [id number]. - Prescriptions for Tylenol- Codeine #3 300-30 mg Oral Tablet - take 2 tablets by ORAL route every 6 hours As needed; 16 tablet. - Medication Reconciliation Form, Thank You Letter, Antibiotic Education, Prescription Opioid Use form. - Follow up: Private Physician; When: 2 - 3 days; Reason: Recheck today's complaints, Continuance of care, Re-evaluation by your physician. Follow up: Emergency Department; When: As needed; Reason: Worsening of condition. Signatures: Dispatcher [employer] EDEly Bowen, MACHINE TENDER-C MACHINE TENDER-John Hicks MD MD cha Attema, Lee, RN RN la1 Lorrie Smith, RN RN ca1 Corrections: (The following items were deleted from the chart) 05/02 19:40 18:54 05/02/2019 18:54 Discharged to Home. Impression: Unspecified fracture of right ca1 forearm - radius. Condition is Stable. Forms are Medication Reconciliation Form, Thank You Letter, Antibiotic Education, Prescription Opioid Use. Follow up: Private Physician; When: 2 - 3 days; Reason: Recheck today's complaints, Continuance of care, Re-evaluation by your physician. Follow up: Emergency Department; When: As needed; Reason: Worsening of condition. kb
--- NOTE | 2019-05-02 18:55 | ER ---
Nurse's Notes [facility] Name: Ingrid Butcher Age: 54 yrs Sex: Female : 1965 Arrival Date: 05/02/2019 Time: 18:04 Bed 28 Private MD: Diagnosis: Unspecified fracture of right forearm-radius Presentation: 05/02 18:04 Presenting complaint: Patient states: I fell off of a hover board and hurt my right la1 wrist. Transition of care: patient was not received from another setting of care. Onset of symptoms was May 02, 2019. Risk Assessment: Do you want to hurt yourself or someone else? Patient reports no desire to harm self or others. Initial Sepsis Screen: Does the patient meet any 2 criteria? No. Patient's initial sepsis screen is negative. Does the patient have a suspected source of infection? No. Patient's initial sepsis screen is negative. Care prior to arrival: None. 18:04 Method Of Arrival: Ambulatory la1 18:04 Acuity: CYRUS 4 la1 Triage Assessment: 18:45 Injury Description: Bruise sustained to right wrist. 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 - Social history:: Smoking status: Patient/guardian denies using tobacco. - Ebola Screening: : No symptoms or risks identified at this time. Screenin:12 Abuse screen: Denies threats or abuse. Denies injuries from another. Nutritional ca1 screening: No deficits noted. Tuberculosis screening: No symptoms or risk factors identified. Fall Risk Fall in past 12 months (25 points). Assessment: 18:12 General: Appears in no apparent distress. comfortable, Behavior is calm, cooperative, ca1 appropriate for age. Pain: Complains of pain in dorsum of right hand and dorsal aspect of right wrist Pain currently is 8 out of 10 on a pain scale. Derm: Skin is intact, is healthy with good turgor, Skin is pink, warm \T\ dry. Musculoskeletal: Circulation, motion, and sensation intact. Capillary refill < 3 seconds, Range of motion: limited in right wrist. 19:27 Reassessment: Patient appears in no apparent distress at this time. Patient and/or ca1 family updated on plan of care and expected duration. Pain level reassessed. Patient is alert, oriented x 3, equal unlabored respirations, skin warm/dry/pink. Vital Signs: 18:05 BP 128 / 86; Pulse 89; Resp 16; Temp 98.6; Pulse Ox 100% on R/A; Weight 51.26 kg; la1 Height 5 ft. 0 in. (152.40 cm); 19:27 BP 131 / 85; Pulse 91; Resp 18; Pulse Ox 100% on R/A; ca1 18:05 Body Mass Index 22.07 (51.26 kg, 152.40 cm) la1 ED Course: 18:04 Patient arrived in ED. la1 18:05 Triage completed. la1 18:05 Arm band placed on left wrist. la1 18:07 Lorrie Smith, RN is Primary Nurse. ca1 18:09 Ely Vides F[facility]-C [facility]. kb 18:09 John Puri MD is Attending Physician. kb 18:12 Patient has correct armband on for positive identification. Bed in low position. Call ca1 light in reach. Side rails up X 1. Pulse ox on. NIBP on. 18:12 No provider procedures requiring assistance completed. Patient did not have IV access ca1 during this emergency room visit. 18:25 Wrist Right 3 View XRAY In Process Unspecified. EDMS 19:05 Orthoglass splint: Sugar tong splint applied on right arm. by Richard Kim, harvesting supervisor ca1 Sling applied to right arm. Administered Medications: 18:18 Drug: [place] (7.5 mg-325 mg) 1 tabs Route: PO; ca1 18:55 Follow up: Response: No adverse reaction; Pain is decreased ca1 Outcome: 18:54 Discharge ordered by . kb 19:28 Discharged to home ambulatory, with family. ca1 19:28 Condition: stable 19:28 Discharge instructions given to patient, Instructed on discharge instructions, follow up and referral plans. medication usage, Demonstrated understanding of instructions, follow-up care, medications, Prescriptions given X 1. 19:40 Patient left the ED. ca1 Signatures: Dispatcher [employer] EDMS Ely Vides FNP-C FNP-Ckb Attema, Lee, RN RN la Lorrie Smith RN RN ca1
[2019-05-02 20:26] VITALS: TEMP 98.6; O2SAT 100
[2019-05-02 20:27] VITALS: BP 131/85
== END 2019-05-02 19:40 | disposition home or self-care (01) ==
LOC: ER 17:54
DX: S52.501A Unspecified fracture of the lower end of right radius, initial encounter for closed fracture (principal); X58.XXXA Exposure to other specified factors, initial encounter; Y93.9 Activity, unspecified; Y92.9 Unspecified place or not applicable; Y99.9 Unspecified external cause status
CPT/HCPCS: 99284

== ENCOUNTER 2024-03-04 18:40 | Emergency (ER) | payer BC ==
--- OUTSIDE RECORDS SUMMARY | 2024-03-04 18:42 | XMS REPORT | Continuity of Care Document ---
Author Name Unknown Address [address] [place] [address] [facility] thconnect Address [address] [place] [address] Care Team Providers Care Sign Maintenance Name Role Phone [email or web address]_S Attending Clinician Unavaila ble [email or web address]_S Admitting Clinician Unavaila ble Payers Payer Name Policy Type Policy Number Effective Date Expirati on Date Source [place] [id number] 2015 00:00:00 Problems Condition Name Condition Details Condition Category Status Onset Date Resolution Date Last Treatment Date Treating Clinician Comments Source Increased frequency of urination Increased Frequency of Urination Problem Active 4-10 00:00: 00 [facility] Gastroesop hageal reflux disease Gastroesop hageal Reflux Disease Problem Active 2022-07 0-26 00:00: 00 [facility] Dyspareuni a Dyspareuni a Problem Active 2021-07 0-28 00:00: 00 [facility] Gynecologi c examinatio n Gynecologi c Examinatio n Problem Active 2021-07 0-28 00:00: 00 [facility] Deep pain on intercours e Deep Pain on Intercours e Problem Active 2021-07 0-14 00:00: 00 [facility] Atrophic vaginitis Atrophic Vaginitis Problem Active 2021-07 0-14 00:00: 00 [facility] History of urinary tract infection History of Urinary Tract Infection Problem Active 2021-07 0-14 00:00: 00 [facility] Candidiasi s of vulva Candidiasi s of Vulva Problem Active 2021-07 0-14 00:00: 00 [facility] Candidiasi s of vagina Candidiasi s of Vagina Problem Active 2021-07 014 00:00: 00 [facility] Social History Smoking Status Start Date Stop Date Source Never Smoker [facility] Medications Ordered Medication Name Filled Medication Name Start Date Stop Date Current Medication? Ordering Clinician Indication Dosage Frequency Signature (SIG) Comments Components Source nitrofurant oin monohydrate /macrocryst als 100 mg capsule Take 1 capsule every 12 hours by oral route as directed for 7 days. nitrofurant oin monohydrate /macrocryst als 100 mg capsule Take 1 capsule every 12 hours by oral route as directed for 7 days. No 1capsul e(s) Q12H nitrofuran toin monohydrat e/macrocry stals 100 mg capsule Take 1 capsule every 12 hours by oral route as directed for 7 days. [facility] Plan of Care Planned Activity Planned Date Details Comments Source Diagnostic Test Pending 2023-11-03 00:00:00 urinalysis, dipstick [code = urinalysis, dipstick] [facility] Diagnostic Test Pending 2023-11-03 00:00:00 urinalysis complete, reflex culture [code = urinalysis complete, reflex culture] [facility] Encounters Start Date/Time End Date/Time Encounter Type Admission Type Attending Clinicians Care Facility Care Department Encounter ID Source 2023-11-03 00:00:00 2023-11-03 00:00:00 Amanda Adams, SAP MOBILITY ARCHITECT: [address], [place] [address] , Ph. [email or web address] diyala_S [facility] - GC_GCBZW_Oneyda [facility]* [id number] [facility] 2023-11-01 00:00:00 2023-11-01 00:00:00 Outpatient [email or web address]_Ka diyala_S [facility] [id number] [facility] 2023-05-23 00:00:00 2023-05-23 00:00:00 Outpatient [email or web address]_Ka diyala_S [facility] [id number] [facility] 2023-05-20 00:00:00 2023-05-20 00:00:00 Outpatient GC_GCBZW_Ka diyala_S [facility] [id number] [facility] 2023-05-20 00:00:00 2023-05-20 00:00:00 Outpatient GC_GCBZW_Ka diyala_S PRIV PRIV [id number] [facility] Results Test Description Test Time Test Comments Results Result Co mments Source [facility]
[2024-03-04] MEDS ORDERED: NA CHLORIDE 0.9% 1,000 ML ONE (20:14)
[2024-03-04] MEDS ORDERED: DIPHENHYDRAMINE 50 MG/ML VIAL ONE (20:14)
[2024-03-04] MEDS ORDERED: KETOROLAC 30 MG/ML INJ ONE (20:14)
[2024-03-04] MEDS ORDERED: METOCLOPRAMIDE 10 MG/2mL INJ ONE (20:14)
[2024-03-04 20:36] LABS: Absolute Eosinophils 0.1 K/uL (0-0.5); Absolute Lymphocytes (CBC) 2.3 K/uL (0.7-4.9); Absolute Monocytes 0.4 K/uL (0.1-1.3); Absolute Neutrophil 3.1 K/uL (1.8-8.0); Basophils % 0.6 % (0-1.3); Eosinophils % 1.2 % (0-4.4); Hematocrit 38.6 % (36.0-45.0); Hemoglobin 12.9 g/dL (12.0-15.0); Lymphocytes % 38.1 % (15.3-44.8); MCH 28.7 pg (27.0-35.0); MCHC 33.5 g/dL (32.0-36.0); MCV 85.8 fL (80-100); MPV 7.8 fL (7.6-11.3); Monocytes % 7.1 % (3.3-12.3); Nucleated Red Blood Cells % 0.1 % (0-0); Platelets 275 thou/uL (152-406); Red Cell Distribution Width 13.1 % (12.1-15.2)
[2024-03-04 21:15] LABS: Specific Gravity > 1.030 (1.005-1.030); Sqamous Epithelial <5 /HPF (None Seen); Urine Bacteria <20 /HPF (<20); Urine Bilirubin NEGATIVE (Negative); Urine Blood Negative (Negative); Urine Clarity Turbid (Clear); Urine Color Yellow (Yellow); Urine Culture Reflex Order REFLEXED; Urine Glucose NEGATIVE (Negative); Urine Ketones NEGATIVE (Negative); Urine Microscopic Reflex YN ORDER UMIC; Urine Mucus Slight /HPF (None Seen); Urine Nitrite NEGATIVE (Negative); Urine Protein TRACE (Negative); Urine RBC <5 /HPF (None Seen); Urine Urobilinogen Normal (Normal); Urine WBC 20-50 /HPF (<5); Urine pH 5.5 (5.0-7.0)
[2024-03-04 21:20] LABS: Albumin 3.9 g/dL (3.4-5.0); Albumin/Globulin Ratio 1.1 (1.1-1.8); Anion Gap 7.9 mEq/L (5.0-15.0); Bilirubin Total 0.2 mg/dL (0.2-1.0); Globulin 3.7 g/dL (2.3-3.5); Protein, Total 7.6 g/dL (6.4-8.2)
[2024-03-04 21:26] LABS: Potassium 3.9 mEq/L (3.5-5.1)
--- NOTE | 2024-03-04 22:47 | RAD REPORT ---
EXAM DESCRIPTION: CT - Abdomen Pelvis W Contrast - 03/04/2024 10:22 pm CLINICAL HISTORY: Abdominal pain COMPARISON: 2014 TECHNIQUE: Computed axial tomography of the abdomen pelvis was obtained. 100 cc Isovue-300 was admin istered intravenously. Oral contrast was not requested which limits evaluation of bowel and appendix All CT scans are performed using dose optimization technique as appropriate and may include automated exposure control or mA/KV adjustment according to patient size. FINDINGS: The liver, spleen, pancreas, adrenal and kidneys appear unremarkable. There is no evidence of diverticulitis. Scoliosis Normal appendix No adnexal mass Bladder is incompletely distended. Wall appears thickened Small area sclerosis right pubic bone unchanged is benign Spondylosis lumbar spine results in spinal stenosis IMPRESSION: Apparent thickening of the wall of bladder may be secondary to incomplete distention or cystitis
--- NOTE | 2024-03-04 23:03 | ER ---
Nurse's Notes [facility] Name: Ingrid Butcher Age: 58 yrs Sex: Female : 1965 Arrival Date: 03/04/2024 Time: 18:40 Bed 20 Private MD: Diagnosis: Acute cystitis Presentation: 03/04 19:04 Chief complaint: Patient states: Has been having increased anxiety over the last week. cm10 Pt saw PCP and was started on Sertraline for anxiety and Contrave for weight loss. Pt reporting, headache, right flank pain, urinary frequency and increased fatigue. Coronavirus screen: Client denies travel out of the [place] in the last 14 days. At this time, the client does not indicate any symptoms associated with coronavirus-19. Ebola Screen: Patient denies travel to an Ebola-affected area in the 21 days before illness onset. No symptoms or risks identified at this time. Initial Sepsis Screen: Does the patient meet any 2 criteria? HR > 90 bpm. Does the patient have a suspected source of infection? No. Patient's initial sepsis screen is negative. Risk Assessment: Do you want to hurt yourself or someone else? Patient reports no desire to harm self or others. Onset of symptoms was March 04, 2024. 19:04 Method Of Arrival: Ambulatory 10 19:04 Acuity: CYRUS 3 cm10 23:16 Onset: The symptoms/episode began/occurred acutely. Anaphylaxis evaluation, no signs or cp4 symptoms of anaphylaxis were noted. Historical: - Allergies: 19:07 CYCLOBENZAPRINE; cm10 19:07 tramadol; cm10 19:07 Naproxen; cm10 - Home Meds: 19:07 Qulipta 60 mg oral tablet [Active]; sertraline 50 mg oral tablet [Active]; Contrave cm10 8-90 mg oral tablet, extended release [Active]; - PMHx: 19:07 Colitis; Migraines; Renal Failure; cm10 - Immunization history:: Adult Immunizations up to date. - Infectious Disease History:: Denies. - Social history:: Smoking status: Patient denies any tobacco usage or history of. Screenin:14 [facility] ED Fall Risk Assessment (Adult) History of falling in the last 3 months, cp4 including since admission No falls in past 3 months (0 pts) Confusion or Disorientation No (0 pts) Intoxicated or Sedated No (0 pts) Impaired Gait No (0 pts) Mobility Assist Device Used No (0 pt) Altered Elimination No (0 pt) Score/Fall Risk Level 0 - 2 = Low Risk Oriented to surroundings, Maintained a safe environment, Assessed \T\ reinforced patient's understanding of fall precautions, Hourly rounding (assess needs \T\ fall precautionary measures) done. Abuse screen: Denies threats or abuse. Nutritional screening: No deficits noted. Tuberculosis screening: No symptoms or risk factors identified. Assessment: 21:14 General: Appears in no apparent distress. comfortable, Behavior is calm, cooperative, cp4 appropriate for age. Pain: Complains of pain in head Pain currently is 8 out of 10 on a pain scale. Neuro: Level of Consciousness is awake, alert, obeys commands, Oriented to person, place, time, situation. Cardiovascular: No deficits noted. Respiratory: No deficits noted. Airway is patent Respiratory effort is even, unlabored, Breath sounds are clear bilaterally. GI: No deficits noted. : No deficits noted. EENT: No deficits noted. Derm: No deficits noted. Musculoskeletal: No deficits noted. 22:00 Reassessment: No changes from previously documented assessment. Patient and/or family cp4 updated on plan of care and expected duration. Pain level reassessed. Patient is alert, oriented x 3, equal unlabored respirations, skin warm/dry/pink. Vital Signs: 19:04 BP 125 / 79; Pulse 101; Resp 18; Temp 97.2(TE); Pulse Ox 98% on R/A; Weight 53.07 kg; cm10 Height 5 ft. 0 in. ; Pain 9/10; 20:15 BP 120 / 91; Pulse 68; Resp 17; Pulse Ox 98% ; cp4 21:00 BP 131 / 91; Pulse 76; Resp 17; Pulse Ox 97% ; cp4 22:00 BP 126 / 80; Pulse 67; Resp 17; Pulse Ox 98% ; cp4 23:00 BP 127 / 62; Pulse 67; Resp 18; Temp 97.2; Pulse Ox 99% ; cp4 19:04 Body Mass Index 22.85 (53.07 kg, 152.4 cm) cm10 19:04 Pain Scale: Adult cm10 ED Course: 18:43 Patient arrived in ED. ra3 18:49 Ely Vides FNP-C is [facility]. kb 18:49 John Puri MD is Attending Physician. kb 19:07 Triage completed. cm10 19:10 Arm band placed on Patient placed in waiting room. cm10 19:44 Pema Baird is Primary Nurse. cp4 21:14 Bed in low position. Call light in reach. Side rails up X 1. cp4 21:14 No provider procedures requiring assistance completed. Inserted saline lock: 20 gauge cp4 in left antecubital area, using aseptic technique. 22:23 CT Abd/Pelvis - IV Contrast Only In Process Unspecified. EDMS 23:16 Provided Education on: urinary tract infection. cp4 23:16 intact, bleeding controlled, No redness/swelling at site. Pressure dressing applied. cp4 Administered Medications: 20:31 Drug: metoCLOPramide IVP 10 mg IVP once; over 1 to 2 minutes Route: IVP; Site: left cp4 antecubital; 22:38 Follow up: Response: No adverse reaction cp4 20:32 Drug: diphenhydrAMINE IVP 12.5 mg IVP once Route: IVP; Site: left antecubital; cp4 22:38 Follow up: Response: No adverse reaction cp4 20:32 Drug: Ketorolac IVP 15 mg IVP once Route: IVP; Site: left antecubital; cp4 22:38 Follow up: Response: No adverse reaction cp4 20:33 Drug: NS 0.9% IV 1000 ml IV at 1 bolus Per protocol; 1000 mL bolus Route: IV; Rate: 1 cp4 bolus; Site: left antecubital; 22:38 Follow up: Response: No adverse reaction; IV Status: Completed infusion; IV Intake: cp4 1000ml 23:09 Drug: Rocephin IV 1 grams IV at calculated rate once; Given slow IV push per pharmacy cp4 instructions Route: IV; Rate: calculated rate; Site: left antecubital; 23:09 Follow up: Response: No adverse reaction; IV Status: Completed infusion cp4 Medication: 21:14 VIS not applicable for this client. cp4 Intake: 22:38 IV: 1000ml; Total: 1000ml. cp4 Outcome: 23:02 Discharge ordered by . milena 23:16 Discharged to home ambulatory, cp4 23:16 Condition: stable 23:16 Discharge instructions given to patient, Instructed on discharge instructions, follow up and referral plans. medication usage, Demonstrated understanding of instructions, follow-up care, medications, Prescriptions given X 1, 23:17 Patient left the ED. cp4 Signatures: Dispatcher [employer] EDMS lEy Vides, Haleigh Ontiveros RN RN cm10 Pema Baird cp4 Carey Bernstein ra3 Corrections: (The following items were deleted from the chart) 19:10 19:07 PMHx: Migraines (Migraines); cm10 10
--- NOTE | 2024-03-04 23:03 | EDPHYS ---
Physician Documentation [facility] Name: Ingrid Butcher Age: 58 yrs Sex: Female : 1965 Arrival Date: 03/04/2024 Time: 18:40 Bed 20 Private MD: ED Physician John Puri HPI: 03/04 18:59 This 58 yrs old Female presents to ER via Unassigned with complaints of Allergy kb Symptoms. 18:59 Pt is a 58 year old female who presents for anxiety over the last week and a half. kb Spoke to Dr Figueroa on Wednesday about the anxiety on Wednesday and was given sertraline as well as contrave. States she also had urinary frequency last night so she started macrobid that she had in the cabinet for a UTI. Comes in today urinary frequency, headache, fatigue, tremors, and right flank pain. . Historical: - Allergies: 19:07 CYCLOBENZAPRINE; cm10 19:07 tramadol; cm10 19:07 Naproxen; cm10 - Home Meds: 19:07 Qulipta 60 mg oral tablet [Active]; sertraline 50 mg oral tablet [Active]; Contrave cm10 8-90 mg oral tablet, extended release [Active]; - PMHx: 19:07 Colitis; Migraines; Renal Failure; cm10 - Immunization history:: Adult Immunizations up to date. - Infectious Disease History:: Denies. - Social history:: Smoking status: Patient denies any tobacco usage or history of. ROS: 23:03 Constitutional: As per HPI kb Exam: 23:03 Constitutional: This is a well developed, well nourished patient who is awake, alert, kb and in no acute distress. Head/Face: Normocephalic, atraumatic. ENT: Moist Mucous membranes Cardiovascular: Regular rate Respiratory: Respirations even and unlabored. No increased work of breathing. Talking in full sentences Abdomen/GI: Soft, non-tender. No distention Skin: Warm, dry with normal turgor. Normal color. MS/ Extremity: Pulses equal, no cyanosis. Neurovascular intact. Full, normal range of motion. Neuro: Awake and alert, GCS 15, oriented to person, place, time, and situation. Moves all extremities. Normal gait. 23:03 Back: CVA tenderness, that is mild, is noted on the right, Vital Signs: 19:04 BP 125 / 79; Pulse 101; Resp 18; Temp 97.2(TE); Pulse Ox 98% on R/A; Weight 53.07 kg; cm10 Height 5 ft. 0 in. ; Pain 9/10; 20:15 BP 120 / 91; Pulse 68; Resp 17; Pulse Ox 98% ; cp4 21:00 BP 131 / 91; Pulse 76; Resp 17; Pulse Ox 97% ; cp4 22:00 BP 126 / 80; Pulse 67; Resp 17; Pulse Ox 98% ; cp4 23:00 BP 127 / 62; Pulse 67; Resp 18; Temp 97.2; Pulse Ox 99% ; cp4 19:04 Body Mass Index 22.85 (53.07 kg, 152.4 cm) cm10 19:04 Pain Scale: Adult cm10 MDM: 18:49 Patient medically screened. kb 23:03 Differential diagnosis: UTI, adverse reaction to medication. Data reviewed: vital kb signs, nurses notes. Historians other than the Patient: Spouse/Significant Other: . Counseling: I had a detailed discussion with the patient and/or guardian regarding the historical points, exam findings, and any diagnostic results supporting the discharge/admit diagnosis, lab results, radiology results, the need for outpatient follow up, a family practitioner, to return to the emergency department if symptoms worsen or persist or if there are any questions or concerns that arise at home. 03/04 19:04 Order name: CBC with Diff; Complete Time: 20:46 kb 03/04 19:04 Order name: CMP; Complete Time: 21:28 kb 03/04 19:04 Order name: Lipase; Complete Time: 21:28 kb 03/04 19:04 Order name: Urinalysis w/ reflexes; Complete Time: 21:48 kb 03/04 21:50 Order name: Urine Culture EDMS 03/04 19:04 Order name: CT Abd/Pelvis - IV Contrast Only; Complete Time: 22:54 kb 03/04 19:04 Order name: IV Saline Lock; Complete Time: 20:32 kb 03/04 19:04 Order name: Labs collected and sent; Complete Time: 20:32 kb Administered Medications: 20:31 Drug: metoCLOPramide IVP 10 mg IVP once; over 1 to 2 minutes Route: IVP; Site: left cp4 antecubital; 22:38 Follow up: Response: No adverse reaction cp4 20:32 Drug: diphenhydrAMINE IVP 12.5 mg IVP once Route: IVP; Site: left antecubital; cp4 22:38 Follow up: Response: No adverse reaction cp4 20:32 Drug: Ketorolac IVP 15 mg IVP once Route: IVP; Site: left antecubital; cp4 22:38 Follow up: Response: No adverse reaction cp4 20:33 Drug: NS 0.9% IV 1000 ml IV at 1 bolus Per protocol; 1000 mL bolus Route: IV; Rate: 1 cp4 bolus; Site: left antecubital; 22:38 Follow up: Response: No adverse reaction; IV Status: Completed infusion; IV Intake: cp4 1000ml 23:09 Drug: Rocephin IV 1 grams IV at calculated rate once; Given slow IV push per pharmacy cp4 instructions Route: IV; Rate: calculated rate; Site: left antecubital; 23:09 Follow up: Response: No adverse reaction; IV Status: Completed infusion cp4 Disposition Summary: 03/04/24 23:02 Discharge Ordered Notes: Location: Home kb Condition: Stable kb Diagnosis - Acute cystitis kb Followup: kb - With: Emergency Department - When: As needed - Reason: Worsening of condition Followup: kb - With: Private Physician - When: 2 - 3 days - Reason: Recheck today's complaints, Continuance of care, Re-evaluation by your physician Discharge Instructions: - Discharge Summary Sheet kb - Urinary Tract Infection, Adult, [id number] kb Forms: - Medication Reconciliation Form kb - Antibiotic Education kb - Prescription Opioid Use kb - Patient Portal Instructions kb - Leadership Thank You Letter kb Prescriptions: - Augmentin 875-125 mg Oral Tablet - take 1 tablet ORAL route every 12 hours for 10 days; 20 tablet; Refills: 0, kb Product Selection Permitted Signatures: Dispatcher [employer] Ely Peralta, ARACELI TOMAS-Haleigh Cheng, RN RN cm10 Pema Baird cp4 Corrections: (The following items were deleted from the chart) 19:10 19:07 PMHx: Migraines (Migraines); cm10 cm10
[2024-03-04] MEDS ORDERED: CEFTRIAXONE 1000 MG/VIAL ONE (23:05)
[2024-03-05 00:15] VITALS: TEMP 97.2
[2024-03-05 00:20] VITALS: BP 127/62; O2SAT 99
== END 2024-03-04 23:17 | disposition home or self-care (01) ==
LOC: ER 18:40
DX: N30.00 Acute cystitis without hematuria (principal); N19 Unspecified kidney failure
CPT/HCPCS: 96361; 87088; 85025; 81001; 87086; 36415; 83690; 80053; 74177; 96375; 96374; 99284; Q9967; J2765; J1200; J7030; J0696